=== PATIENT | female | born 1960 | race Caucasian/White ===

== ENCOUNTER 2017-08-19 20:46 | Emergency (ER) | payer MEDICARE ==
[~2017-08-19] VITALS: Ht 170.2 cm; Wt 72.6 kg
[~2017-08-19 20:46] MED LIST: ANTIDEPRESSENT; CLAR500 PO; Crutch1 EACH MISC; META800 PO; METO10 PO; METR500 PO; NITR100 PO; OXYACE5T PO; Percocet 5-3251 EACH PO; RXNEOPOLHC AS; RXOXYACE PO; VENL37.5ER PO; VENL75ER PO
[2017-08-19] MEDS ORDERED: IBUP800 PO (22:12)
[2017-08-19] MEDS ORDERED: Norco 5-325 Ta1 EACH PO (22:12)
== END 2017-08-19 22:32 | disposition home or self-care (01) ==
LOC: ER 20:46
DX: S52.571A Other intraarticular fracture of lower end of right radius, initial encounter for closed fracture (principal); F17.210 Nicotine dependence, cigarettes, uncomplicated; Z88.0 Allergy status to penicillin; Z79.899 Other long term (current) drug therapy; W17.89XA Other fall from one level to another, initial encounter
CPT/HCPCS: 29125; 73110; 99283

== ENCOUNTER 2021-12-14 14:03 | Inpatient (IN) | payer MEDICARE, OTHER ==
[~2021-12-14] VITALS: Ht 170.2 cm; Wt 70.9 kg
[~2021-12-14 14:03] MED LIST changes: +IBUP800 PO; +Norco 5-325 Ta1 EACH PO
[2021-12-14 15:09] LABS: BASOPHILS ABSOLUTE AUTO 0.06 K/mm3 (0.00-0.23); BASOPHILS PERCENT AUTO 0 % (0-2); EOSINOPHILS ABSOLUTE AUTO 0.01 K/mm3 (0.00-0.68); EOSINOPHILS PERCENT AUTO 0 % (0-6); Hematocrit 42.4 % (33.0-51.0); Hemoglobin 14.6 g/dL (11.5-16.0); IMMATURE GRAN ABSOLUTE AUTO 0.08 K/mm3 (0.00-0.10); IMMATURE GRAN PERCENT AUTO 1 % (0-1); LYMPHOCYTES ABSOLUTE AUTO 1.67 K/mm3 (0.84-5.20); LYMPHOCYTES PERCENT AUTO 10 % (21-46); MONOCYTES ABSOLUTE AUTO 0.69 K/mm3 (0.16-1.47); MONOCYTES PERCENT AUTO 4 % (4-13); Mean Corpuscular HGB 30.2 pg (26.0-34.0); Mean Corpuscular HGB Conc 34.4 g/dL (31.5-36.5); Mean Corpuscular Volume 88 fL (80-100); Mean Platelet Volume 10.3 fL (9.1-12.4); NEUTROPHILS ABSOLUTE AUTO 14.07 K/mm3 (1.96-9.15); NEUTROPHILS PERCENT AUTO 85 % (41-73); Platelet Count 339 K/mm3 (150-400); RDW Coefficient Variation 12.2 % (11.7-14.2); RDW Standard Deviation 39.3 fL (35.1-46.3); Red Blood Cell Count 4.84 M/mm3 (3.80-5.20); White Blood Cell Count 16.58 K/mm3 (4.00-11.30)
[2021-12-14 15:54] LABS: Albumin, Blood 4.1 g/dL (3.4-5.0); Albumin/Globulin Ratio 1.1 (0.8-1.8); Bilirubin, Total 0.3 mg/dL (0.1-1.0); Bun/Creatinine Ratio 20.5 (12.0-20.0); Calcium, Blood 9.5 mg/dL (8.5-10.1); Creatinine, Blood 0.63 mg/dL (0.40-1.00); Globulin, Blood 3.8 g/dL (2.2-4.0); Potassium, Blood 3.8 mmol/L (3.5-5.5); Total Protein, Blood 7.9 g/dL (6.4-8.2)
--- NOTE | 2021-12-15 04:41 | NUR ---
SHIFT SUMMARY PT A&OX4, PLEASANT AND COOPERATIVE. TITRATED OFF 1L OF OXYGEN TO RA, SATS >90. PATIENT WAS A LITTLE NAUSEAS ON ARRIVING TO UNIT. TOLERATED SOME CRACKERS/WATER WITHOUT VOMITING. PT SLEPT MOST OF THE SHIFT, DID NOT REQUEST PAIN OR NAUSEA MEDICATION. PLAN IS A REPEAT CHEST X-RAY TODAY TO SEE IF THE PNEUMOTHORAX IS RESOLVING. INDEPENDENT IN ROOM, CALL LIGHT WITHIN REACH.
--- NOTE | 2021-12-15 08:07 | NUR ---
PT AWAKENS EASILY TO VERBAL STIMULI. ANSWERS QUESTIONS APPROPRIATLY. A/O X'S 4. PT LUNGS DIM IN BASES, DENIES ANY SOB, REPORTS SORENESS TO R SIDE, LUNGS DIM IN BASES. PT GIVEN IS AND EDUCATED ON USE, PT VERBALIZED UNDERSTANDING AND DEMONSTRATED USE FOLLOWING EDUCATION. SCATTERED SCRATCHES/BRUISING PRESENT TO RUE. POSSIBLE DC THIS AFTERNOON PENDING CXR AND IF PAIN WELL MANAGED AND PT AMBULATING AT BASELINE.
[2021-12-15] MEDS ORDERED: HYDR1TAB94 PO (14:19)
[2021-12-15] MEDS ORDERED: IBUP400 PO (14:19)
== END 2021-12-15 14:40 | disposition home or self-care (01) | DRG 201 ==
LOC: ER 14:03 → SURS 16:57
PROVIDERS: Physician Assistant; ADMIT Surgery
DX: S27.0XXA Traumatic pneumothorax, initial encounter (principal); M54.9 Dorsalgia, unspecified; G89.29 Other chronic pain; F17.210 Nicotine dependence, cigarettes, uncomplicated; Z98.890 Other specified postprocedural states; V80.010A Animal-rider injured by fall from or being thrown from horse in noncollision accident, initial encounter; Z79.899 Other long term (current) drug therapy; Z88.0 Allergy status to penicillin; Z79.891 Long term (current) use of opiate analgesic
CPT/HCPCS: 36415; 71045; 71260; 74177; 80053; 85025; 96374-59; 96375-59; 99285-25; A9270; J1170; J1650; J1885; J2405; Q9967

== ENCOUNTER 2024-04-26 13:47 | Emergency (ER) | payer MEDICARE, OTHER ==
[~2024-04-26] VITALS: Ht 170.2 cm; Wt 59.0 kg
[~2024-04-26 13:47] MED LIST changes: +HYDR1TAB94 PO; +IBUP400 PO
[2024-04-26 14:34] VITALS: BP 97/59
[2024-04-26 15:13] LABS: Albumin/Globulin Ratio 1.1 (0.8-1.8); Bilirubin, Total 0.4 mg/dL (0.1-1.0); Bun/Creatinine Ratio 18.3 (12.0-20.0); Creatinine, Blood 0.77 mg/dL (0.40-1.00); Globulin, Blood 3.6 g/dL (2.2-4.0); Potassium, Blood 4.1 mmol/L (3.5-5.5); Total Protein, Blood 7.6 g/dL (6.4-8.2)
[2024-04-26 15:31] LABS: BASOPHILS ABSOLUTE AUTO 0.04 K/mm3 (0.00-0.23); BASOPHILS PERCENT AUTO 1 % (0-2); EOSINOPHILS ABSOLUTE AUTO 0.09 K/mm3 (0.00-0.68); EOSINOPHILS PERCENT AUTO 1 % (0-6); Hematocrit 37.5 % (33.0-51.0); Hemoglobin 13.3 g/dL (11.5-16.0); IMMATURE GRAN ABSOLUTE AUTO 0.01 K/mm3 (0.00-0.10); IMMATURE GRAN PERCENT AUTO 0 % (0-1); LYMPHOCYTES ABSOLUTE AUTO 2.98 K/mm3 (0.84-5.20); LYMPHOCYTES PERCENT AUTO 41 % (21-46); MONOCYTES ABSOLUTE AUTO 0.44 K/mm3 (0.16-1.47); MONOCYTES PERCENT AUTO 6 % (4-13); Mean Corpuscular HGB 31.3 pg (26.0-34.0); Mean Corpuscular HGB Conc 35.5 g/dL (31.5-36.5); Mean Corpuscular Volume 88 fL (80-100); Mean Platelet Volume 10.4 fL (9.1-12.4); NEUTROPHILS ABSOLUTE AUTO 3.78 K/mm3 (1.96-9.15); NEUTROPHILS PERCENT AUTO 52 % (41-73); Platelet Count 291 K/mm3 (150-400); RDW Coefficient Variation 12.1 % (11.7-14.2); RDW Standard Deviation 38.9 fL (35.1-46.3); Red Blood Cell Count 4.25 M/mm3 (3.80-5.20); White Blood Cell Count 7.34 K/mm3 (4.00-11.30)
[2024-04-26] MEDS ORDERED: CEPH500 PO (17:27)
[2024-04-26] MEDS ORDERED: Cephalexin Monohydrate 500 MG Cap PO ONE (17:30)
== END 2024-04-26 17:57 | disposition home or self-care (01) ==
LOC: ER 13:47
PROVIDERS: Student in an Organized Health Care Education/Training Program
DX: L03.316 Cellulitis of umbilicus (principal); F17.210 Nicotine dependence, cigarettes, uncomplicated; Z88.0 Allergy status to penicillin; Z79.899 Other long term (current) drug therapy
CPT/HCPCS: 80053; 85025; 99284; A9270

== ENCOUNTER 2024-07-24 18:32 | Emergency (ER) | payer OTHER ==
[~2024-07-24] VITALS: Ht 170.2 cm; Wt 59.9 kg
[~2024-07-24 18:32] MED LIST changes: +CEPH500 PO
[2024-07-24 18:37] VITALS: BP 128/82
[2024-07-24] MEDS ORDERED: Doxycycline Hyclate 100 MG TAB PO ONE ×2 (20:35→20:40)
[2024-07-24] MEDS ORDERED: DOXY100 PO (20:37)
[2024-07-24] MEDS ORDERED: Diphth,Pertuss(Acell),Tet Vac 0.5 ML VIAL IM ONE (21:45)
== END 2024-07-24 23:11 | disposition home or self-care (01) ==
LOC: ER 18:32
DX: S61.452A Open bite of left hand, initial encounter (principal); S60.470A Other superficial bite of right index finger, initial encounter; S60.474A Other superficial bite of right ring finger, initial encounter; Z88.0 Allergy status to penicillin; Z79.2 Long term (current) use of antibiotics; F17.210 Nicotine dependence, cigarettes, uncomplicated; Z79.899 Other long term (current) drug therapy; W54.0XXA Bitten by dog, initial encounter
CPT/HCPCS: 12042; 90471; 90715; 99283-25; A9270